=== PATIENT | female | born 1935 | race Caucasian/White ===

== ENCOUNTER 2018-06-03 14:49 | Inpatient (IN) | payer OTHER, BC ==
[~2018-06-03] VITALS: Ht 157.5 cm; Wt 68.0 kg
[2018-06-03 15:11] VITALS: Ht 157.5 cm; Wt 68.0 kg
[2018-06-03 16:06] LABS: BASOPHIL % 0.4 % (0-2); PLATELET COUNT 290 x10^3mcL (130-400); RED CELL DISTRIBUTION WIDTH 14.5 % (11.5-14.5)
[2018-06-03 16:56] LABS: ALBUMIN 3.4 g/dL (3.4-5.0); ALKALINE PHOSPHATASE 54 U/L (46-116); ALT/SGPT 36 U/L (14-59); AST/SGOT 51 U/L (15-37); BILIRUBIN TOTAL 0.6 mg/dL (0.20-1.00); CARBON DIOXIDE 17.7 mmol/L (21-32); CHLORIDE SERUM 98 mmol/L (98-107); CREATININE SERUM 2.9 mg/dL (0.6-1.0); GLUCOSE SERUM 158 mg/dL (74-106); MAGNESIUM 2.2 mg/dL (1.8-2.4); POTASSIUM SERUM 4.5 mmol/L (3.5-5.1); SODIUM SERUM 140 mmol/L (136-145)
[2018-06-03 16:58] LABS: TOTAL PROTEIN, SERUM 8.7 g/dL (6.4-8.2)
[2018-06-03 16:59] LABS: CALCIUM 5.6 mg/dL (8.5-10.1)
[2018-06-03 18:37] LABS: UA SPECIFIC GRAVITY >=1.030 (1.005-1.035); microscopic required? YES; urine erythrocyte NEGATIVE (NEGATIVE)
[2018-06-03 18:54] LABS: AMPHETAMINE QUAL UR NONE DETECTED (See below)
[2018-06-03] MEDS ORDERED: LEVOTHYROXIN0.137 MG PO (19:43)
[2018-06-03] MEDS ORDERED: ZES10 PO (19:43)
[2018-06-03] MEDS ORDERED: LIPI20 PO (19:44)
[2018-06-03] MEDS ORDERED: METFORMIN HCL1000 MG PO (19:44)
[2018-06-03] MEDS ORDERED: FENOFIBRATE48 M1 PO (19:44)
[2018-06-03] MEDS ORDERED: GLIPIZIDE ER5 M1 PO (19:44)
[2018-06-03] MEDS ORDERED: ASPIR 8181 MG PO (19:45)
[2018-06-03] MEDS ORDERED: DILTIAZEM HCL120 M2 PO (19:45)
[2018-06-03 21:06] VITALS: BP 124/50
[2018-06-04 05:50] VITALS: BP 124/48
[2018-06-04 06:42] LABS: BASOPHIL % 0.7 % (0-2); PLATELET COUNT 232 x10^3mcL (130-400); RED CELL DISTRIBUTION WIDTH 14.3 % (11.5-14.5)
[2018-06-04 07:08] LABS: CARBON DIOXIDE 18.3 mmol/L (21-32); CHLORIDE SERUM 107 mmol/L (98-107); GLUCOSE SERUM 105 mg/dL (74-106); SODIUM SERUM 146 mmol/L (136-145)
[2018-06-04 07:10] LABS: CALCIUM 5.2 mg/dL (8.5-10.1)
[2018-06-04 07:22] VITALS: BP 124/50
[2018-06-04 08:35] LABS: CHOLESTEROL/HDL RATIO 5.8
[2018-06-04 11:38] VITALS: BP 123/53
[2018-06-04 15:59] VITALS: BP 114/54
[2018-06-04 22:27] VITALS: BP 117/41
[2018-06-05 06:03] VITALS: BP 142/52
[2018-06-05 06:37] LABS: BASOPHIL % 0.5 % (0-2); PLATELET COUNT 218 x10^3mcL (130-400); RED CELL DISTRIBUTION WIDTH 14.5 % (11.5-14.5)
[2018-06-05 07:01] LABS: CARBON DIOXIDE 20.9 mmol/L (21-32); CHLORIDE SERUM 109 mmol/L (98-107); CREATININE SERUM 1.4 mg/dL (0.6-1.0); GLUCOSE SERUM 123 mg/dL (74-106); PHOSPHOROUS 5.2 mg/dL (2.5-4.9); POTASSIUM SERUM 3.6 mmol/L (3.5-5.1); SODIUM SERUM 144 mmol/L (136-145)
[2018-06-05 07:51] LABS: CALCIUM 5.3 mg/dL (8.5-10.1)
[2018-06-05 07:57] VITALS: BP 127/53
[2018-06-05 12:59] VITALS: BP 120/62
[2018-06-05 16:00] VITALS: BP 125/51
[2018-06-05 21:04] VITALS: BP 128/49
[2018-06-06 05:03] VITALS: BP 123/63
[2018-06-06 07:04] LABS: PLATELET COUNT 249 x10^3mcL (130-400); RED CELL DISTRIBUTION WIDTH 14.2 % (11.5-14.5)
[2018-06-06 07:06] LABS: BASOPHIL % 2.7 % (0-2)
[2018-06-06 07:31] LABS: CARBON DIOXIDE 21.8 mmol/L (21-32); CHLORIDE SERUM 107 mmol/L (98-107); CREATININE SERUM 1.1 mg/dL (0.6-1.0); GLUCOSE SERUM 174 mg/dL (74-106); PHOSPHOROUS 3.2 mg/dL (2.5-4.9); POTASSIUM SERUM 3.4 mmol/L (3.5-5.1); SODIUM SERUM 144 mmol/L (136-145)
[2018-06-06 07:51] LABS: CALCIUM 5.4 mg/dL (8.5-10.1)
[2018-06-06 09:45] VITALS: BP 120/44
[2018-06-06 13:19] VITALS: BP 119/49
[2018-06-06 17:33] VITALS: BP 125/52
[2018-06-06 21:01] VITALS: BP 130/49
[2018-06-07 05:17] VITALS: BP 159/65
[2018-06-07 06:25] LABS: BASOPHIL % 1.4 % (0-2); PLATELET COUNT 250 x10^3mcL (130-400); RED CELL DISTRIBUTION WIDTH 14.3 % (11.5-14.5)
[2018-06-07 07:54] LABS: CALCIUM 6.4 mg/dL (8.5-10.1); CARBON DIOXIDE 26.4 mmol/L (21-32); CHLORIDE SERUM 106 mmol/L (98-107); CREATININE SERUM 1.1 mg/dL (0.6-1.0); GLUCOSE SERUM 211 mg/dL (74-106); PHOSPHOROUS 3.4 mg/dL (2.5-4.9); POTASSIUM SERUM 3.6 mmol/L (3.5-5.1); SODIUM SERUM 146 mmol/L (136-145)
[2018-06-07 08:43] VITALS: BP 147/66
[2018-06-07 12:34] VITALS: BP 125/62
[2018-06-07 17:06] VITALS: BP 125/62
== END 2018-06-07 17:34 | DRG 682 ==
LOC: ED 14:49 → DU 19:29
PROVIDERS: Emergency Medicine; ADMIT General Practice
DX: N17.0 Acute kidney failure with tubular necrosis (principal); G93.41 Metabolic encephalopathy; M62.82 Rhabdomyolysis; E87.0 Hyperosmolality and hypernatremia; D68.69 Other thrombophilia; E83.51 Hypocalcemia; E11.9 Type 2 diabetes mellitus without complications; E87.6 Hypokalemia; E86.0 Dehydration; R80.9 Proteinuria, unspecified; E83.39 Other disorders of phosphorus metabolism; I10 Essential (primary) hypertension; R74.0 Nonspecific elevation of levels of transaminase and lactic acid dehydrogenase [LDH]; K76.0 Fatty (change of) liver, not elsewhere classified; Z79.82 Long term (current) use of aspirin; Z68.27 Body mass index [BMI] 27.0-27.9, adult; Z79.84 Long term (current) use of oral hypoglycemic drugs
CPT/HCPCS: 82652; 82962; 92526-GN; 92610; 94150; 97110-GP; 97530-GP; J2405; J2920; J3490; J7030; J7620; J7626